=== PATIENT | female | born 1945 | race Caucasian/White ===

== ENCOUNTER → 2022-09-22 | Day surgery (SDC) | payer OTHER ==
[~2022-09-22] VITALS: Ht 160 cm; Wt 84.8 kg
[~2022-09-22] MED LIST: B-COMPLEX1 EACH; CHILDREN'S ASPI81 MG PO; LEVOTHY PO; LIPIT PO; LOSART PO; NEPHRONEX-SL T1 EACH PO; VITAMIN D31 ML PO; [UNRECOGNIZED DRUG - CODE] PO
== END | disposition home or self-care (01) ==
LOC: ADM 09-19 07:00 → CIR.AMB 06:40
PROVIDERS: ATTEND Urology
DX: N21.1 Calculus in urethra (principal); I10 Essential (primary) hypertension; Z95.0 Presence of cardiac pacemaker; J84.10 Pulmonary fibrosis, unspecified; Z87.891 Personal history of nicotine dependence; E03.9 Hypothyroidism, unspecified; Z20.822 Contact with and (suspected) exposure to COVID-19